=== PATIENT | male | born 1975 | race Caucasian/White ===

== ENCOUNTER 2024-09-26 06:52 | Day surgery (SDC) | payer BC ==
[2024-09-26] MEDS ORDERED: fentaNYL 100 MCG/2 ML SDV ONE (07:15)
[2024-09-26] MEDS ORDERED: Propofol 200 MG/20 ML SDV ONE (07:15)
[2024-09-26] MEDS ORDERED: Midazolam 1 MG/ML 2 ML SDV ONE (07:15)
[2024-09-26] MEDS: Lactated Ringers 1,000 ML IV SCH (07:49)
== END 2024-09-26 09:35 | disposition home or self-care (01) ==
LOC: JP.SDS 06:52
PROVIDERS: ATTEND Family Medicine
DX: K64.8 Other hemorrhoids (principal); Z86.0100 Personal history of colon polyps, unspecified; J45.909 Unspecified asthma, uncomplicated; K21.9 Gastro-esophageal reflux disease without esophagitis
CPT/HCPCS: 00812; 45378; J2250; J2704; J3010; J7120